=== PATIENT | female | born 2000 | race Two or more races ===

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

== ENCOUNTER 2021-01-18 18:03 | Emergency (ER) | payer MEDICAID ==
[~2021-01-18] VITALS: Ht 157.5 cm; Wt 52.4 kg
--- NOTE | 2021-01-18 18:43 | NUR ---
COPY HOLDER: PT PROVIDED URINE SAMPLE. UA ORDERED PER PROTOCOL AND SENT TO LAB
[2021-01-18 18:59] LABS: MICROSCOPIC INDICATED
--- NOTE | 2021-01-18 19:04 | NUR ---
investments manager: Pt ambulatory to room from lobby at this time.
--- NOTE | 2021-01-18 19:06 | NUR ---
PT BIB FRIEND VIA POV. PER PT SHE HAS PAINFUL URINATION X1 HR. RECENTLY FOUND OUT PREG, UNKNOWN GESTATION. PT RESTING IN [place] AT THIS TIME, FRIEND AT BEDSIDE, RUPESH.
[2021-01-18 19:47] LABS: ANION GAP 5 mmol/L (5-15); CHLORIDE 108 mmol/L (98-107); CREATININE 0.54 mg/dL (0.55-1.02)
[2021-01-18] MEDS ORDERED: CEFDINIR 300 MG CAPSULE ONE (19:47)
[2021-01-18 19:48] LABS: ALBUMIN 3.5 g/dL (3.4-5.0)
[2021-01-18 19:52] LABS: BASOPHILS % (AUTO) 1 % (0-1); EOSINOPHILS % (AUTO) 1 % (1-7); LYMPHOCYTES % (AUTO) 17 % (22-44); MEAN CORPUSCULAR HEMOGLOBIN 30.4 pg (27.0-34.8); MEAN CORPUSCULAR HGB CONC 34.6 g/dL (32.4-35.8); MEAN PLATELET VOLUME 8.6 fL (7.4-10.4); MONOCYTES % (AUTO) 7 % (2-9); NEUTROPHILS % (AUTO) 75 % (42-75); PLATELET COUNT 288 x10^3/uL (130-400); RED BLOOD COUNT 4.39 x10^6/uL (3.82-5.3); RED CELL DISTRIBUTION WIDTH 14.4 % (9.6-15.2)
[2021-01-18] MEDS ORDERED: CEFDINIR 300 MG CAPSULE PO ONE (20:00)
--- NOTE | 2021-01-18 21:04 | NUR ---
REPORT TO LOU MURILLO.
[2021-01-18 21:54] VITALS: BP 107/65
--- NOTE | 2021-01-18 21:54 | NUR ---
Discharge instructions given. All questions and concerns addressed. Patient ambulatory with a steady gait. Belongings with patient.
== END 2021-01-18 21:56 | disposition home or self-care (01) ==
LOC: ED 21:00
DX: O23.41 Unspecified infection of urinary tract in pregnancy, first trimester (principal); Z3A.01 Less than 8 weeks gestation of pregnancy
CPT/HCPCS: 36415; 76801; 80048; 81001; 82040; 84702; 85025; 87077; 87086; 87186; 99284